=== PATIENT | female | born 1960 | race Caucasian/White ===

== ENCOUNTER 2020-12-14 11:37 | Emergency (ER) | payer SELFPAY ==
[2020-12-14] MEDS ORDERED: Lidocaine 4% Cream 5 GM TUBE w/ Tegaderm ONE (12:20)
[2020-12-14] MEDS ORDERED: Boostrix 0.5 ML (Tdap) VIAL ONE (12:20)
== END 2020-12-14 13:05 | disposition home or self-care (01) ==
LOC: BURERS 11:37
DX: S01.01XA Laceration without foreign body of scalp, initial encounter (principal); M19.90 Unspecified osteoarthritis, unspecified site; I10 Essential (primary) hypertension; Z23 Encounter for immunization; W18.30XA Fall on same level, unspecified, initial encounter
CPT/HCPCS: 12002; 90471; 90715

== ENCOUNTER 2020-12-16 15:02 | Emergency (ER) | payer OTHER, SELFPAY | END 2020-12-16 16:10 | disposition home or self-care (01) | LOC: BURERS 15:02 | DX: S20.212A Contusion of left front wall of thorax, initial encounter (principal); S30.1XXA Contusion of abdominal wall, initial encounter; I10 Essential (primary) hypertension; M19.90 Unspecified osteoarthritis, unspecified site; W01.0XXA Fall on same level from slipping, tripping and stumbling without subsequent striking against object, initial encounter | CPT/HCPCS: 99283 ==

== ENCOUNTER 2021-01-08 14:16 | Emergency (ER) | payer SELFPAY | END 2021-01-08 14:38 | disposition home or self-care (01) | LOC: BURERS 14:16 | DX: S01.00XD Unspecified open wound of scalp, subsequent encounter (principal); I10 Essential (primary) hypertension ==